=== PATIENT | male | born 1990 | race Two or more races ===

== ENCOUNTER 2024-07-01 08:35 | Emergency (ER) | payer MEDICAID, SELFPAY ==
[2024-07-01 08:54] VITALS: BMI 31.4
[2024-07-01 08:55] VITALS: BP 127/82; PULSE 62; RESP 19; TEMP 37.1; O2SAT 99
--- NOTE | 2024-07-01 09:33 | XR_ITS ---
Examination: CT abdomen with intravenous contrast CT pelvis with intravenous contrast 2-D coronal reconstructions 2-D sagittal reconstructions Date and time of exam:July 01, 2024 1134 hours INDICATIONS: Left lower abdominal pain beginning one hour ago COMPARISON: 03/24/2021. CTDI: vol (mGy) 11.3 DLP: (mGycm) 742 Technique: Multiple axial sections of the abdomen and pelvis have been obtained. 64 slice high-resolution scanner used. 3 mm axial sections have been obtained, post intravenous injection 60 cc [id number] 2-D sagittal, coronal reconstructions obtained. Low dose protocols were performed. One or more of the following dose reduction techniques were used; automated exposure control, adjustment of the mA and/or KV according to patient size, use of iterative reconstruction technique. Findings: No focal liver lesions 10 mm splenic lesion No biliary tract dilatation Cholelithiasis No pancreatic mass Minimal left hydronephrosis secondary to 2 mm distal left ureteral calculus Aorta normal size No bowel obstruction Normal appendix No diverticulitis Contracted urinary bladder IMPRESSION: 10 mm splenic lesion, recommend splenic sonography follow-up Minimal left hydronephrosis, 2 mm distal left ureteral calculus
--- NOTE | 2024-07-01 09:33 | EDRME_ITS ---
Rapid Medical Screening Exam RME Arrival date/time: 07/01/24 08:35 34-year-old male presents emergency department complaints of left lower abdominal pain. I have greeted and performed a focused initial assessment of this patient. Initial appropriate labs ordered at this time. A comprehensive ED assessment an d evaluation of the patient and analysis of all test and completion of medical decision making process will be conducted by additional ED provider. Chief Complaint: Abdominal Pain Time Seen by Provider: 07/01/24 08:59 Vital signs: Vital Signs Temperature 98.7 F 07/01/24 08:55 Pulse Rate 62 07/01/24 08:55 Respiratory Rate 19 07/01/24 08:55 Blood Pressure 127/82 07/01/24 08:55 Pulse Oximetry (%) 99 07/01/24 08:55 Oxygen Delivery Method Room Air 07/01/24 08:55
[2024-07-01 10:01] LABS: Basophils % (Auto) 0 % (0-2.5); Eosinophils # (Auto) 0.2 Thou/mm3 (0.0-0.5); Eosinophils % (Auto) 3 % (0-10); Hematocrit 48.3 % (41.0-53.0); Hemoglobin 16.4 g/dL (13.5-16.0); Immature Granulocytes % (Auto) 0 % (0-0); Immature Granulocytes Auto 0.01 Thou/mm3 (0.00-0.00); Lymphocytes # (Auto) 2.4 Thou/mm3 (1.0-4.8); Lymphocytes % (Auto) 37 % (10-50); Mean Corpuscular Hemoglobin 29.8 pg (25.0-35.0); Mean Corpuscular Volume 88 fL (80-100); Monocytes # (Auto) 0.4 Thou/mm3 (0.0-0.8); Monocytes % (Auto) 7 % (0-12); Neutrophils # (Auto) 3.4 Thou/mm3 (1.8-7.7); Neutrophils % (Auto) 53 % (37-80); Nucleated Red Blood Cell % 0 /100 WBC (0); Platelet Count 213 Thou/mm3 (140-440); White Blood Count 6.5 Thou/mm3 (3.8-10.6)
[2024-07-01 10:20] LABS: Alanine Aminotransferase 38 U/L (10-49); Albumin/Globulin Ratio 1.4 (1.2-2.2); Alkaline Phosphatase 78 U/L (46-116); Anion Gap 8 (7-16); Aspartate Amino Transferase 27 U/L (0-34); BUN/Creatinine Ratio 10 Ratio (12-20); Bilirubin,Total 0.9 mg/dL (0.3-1.2); Blood Urea Nitrogen 12 mg/dL (9-23); Calcium 10.2 mg/dL (8.3-10.6); Calcium (Corrected) 10.2 mg/dL (8.5-10.1); Carbon Dioxide 28.2 mMol/L (20.0-31.0); Chloride 102 mMol/L (98-107); Creatinine (Component) 1.2 mg/dL (0.6-1.3); Estimated Creatinine Clearance 109.7 mL/min (>60); Globulin 3.5 gm/dL (2.3-3.5); Glucose 120 mg/dL (74-106); Lipase 34 U/L (12-53); Osmolality,Calculated 276 (275-295); Potassium 4.1 mMol/L (3.4-5.1); Sodium 138 mMol/L (136-145); Total Protein 8.5 gm/dL (5.7-8.2); eGFR > 60 See Note
[2024-07-01 10:30] LABS: Collection Type, Urine Clean Catch
[2024-07-01 10:41] LABS: Amorphous Crystals,Urine Present (Absent); Bilirubin,Urine Negative (Negative); Blood,Urine 3+ (Negative); Color,Urine Yellow (Lt Yel-Yel); Glucose, Urine Negative (Negative); Hyaline Casts,Urine < 1 /hpf (0-1); Ketones,Urine Negative (Negative); Leukocyte Esterase,Urine Negative (Negative); Nitrite,Urine Negative (Negative); Protein,Urine 1+ (Neg - Trace); RBC,Urine 26 /hpf (0-3); Squamous Epithelial Cell,Urine 2 /hpf (0-5); Urobilinogen,Urine Negative mg/dL (0.0-1.0); WBC,Urine 2 /hpf (0-5)
[2024-07-01 11:12] LABS: Clarity,Urine Hazy (Clear/Hazy)
[2024-07-01] MEDS: ONDANSETRON INJ 2 MG/ML INJ 2 ML 4 MG IV (12:28)
[2024-07-01] MEDS: MORPHINE SULF INJ 10 MG/ML VIAL 5 MG IVP (12:30)
--- NOTE | 2024-07-01 14:07 | PD.EDABDPN ---
ED Abdominal Pain RME/HPI General Chief Complaint: Abdominal Pain Stated complaint: ABD PAIN FOR 1 HOUR Time seen by provider: 07/01/24 08:59 Arrival date/time: 07/01/24 08:35 RME / HPI RME / HPI narrative: 34-year-old male patient with no significant medical history, came in for evaluation regarding left lower abdominal pain, sudden onset about 1 hour prior to ER visit, described as sharp pain, severity 10 out of 10. Denies any hematuria dysuria vomiting fever or other complaints. Related Data Previous Rx's ?Medication ?Instructions ?Recorded ibuprofen 800 mg tablet 800 mg PO TID PRN pain #30 tabs 07/01/24 Allergies Allergy/AdvReac Type Severity Reaction Status Date / Time No Known Allergies Allergy Verified 07/01/24 08:37 Review of Systems Review of Systems Narrative Review of Systems: Review of system reviewed and within normal limits except mentioned in HPI ED Exam Narrative Physical exam: VITAL SIGNS: Reviewed. GENERAL APPEARANCE: Alert and interactive, follows commands, no acute distress, HEAD AND FACE: Non-traumatic. ENT: PERRL, pink conjunctivitis, eyelid no trauma, Mucous membrane moist. NECK: Supple, nontender, no nuchal rigidity. CHEST: No tenderness, no crepitus, no paradoxical movement, no retractions. LUNGS: Clear, well ventilated, symmetric, no rales, no wheezing, no ronchi, no stridor, good breath sounds bilaterally. HEART: Regular rate, regular rhythm, no murmur, no gallops. ABDOMEN: Soft, positive bowel sounds, nondistended, no guarding, left lower quadrant tenderness no rebound, no masses, RECTAL: Deferred. GENITAL: Deferred. NEUROLOGICAL: Gross motor function intact sensory function intact, Appropriate for age. MUSCULOSKELETAL: low back nontender, full range of motion. EXTREMITIES: Nontender, full range of motion. SKIN: Color pink, dry, no rash, no lacerations, no abrasions, no contusions. LYMPHATICS: Deferred. Course Quality Measures none Orders Category Date Time Status CT Screening NOW Care 07/01/24 09:[address] abdomen pelvis w con Stat Exams 07/01/24 09:33 Completed CBC Stat Lab 07/01/24 09:46 Completed Comprehensive Metabolic Panel Stat Lab 07/01/24 09:46 Completed Lipase Stat Lab 07/01/24 09:46 Completed Urinalysis Stat Lab 07/01/24 10:06 Completed Morphine Inj Med 07/01/24 12:01 Discontinued 5 mg IM X1 ONE Morphine Inj Med 07/01/24 12:27 Discontinued 5 mg IVP X1 ONE Ondansetron Inj [Zofran Inj] Med 07/01/24 12:01 Discontinued 4 mg IV X1 ONE Vital Signs Vital signs: Vital Signs Temperature 98.7 F 07/01/24 08:55 Pulse Rate 62 07/01/24 08:55 Respiratory Rate 19 07/01/24 08:55 Blood Pressure 127/82 07/01/24 08:55 Pulse Oximetry (%) 99 07/01/24 08:55 Oxygen Delivery Method Room Air 07/01/24 08:55 Abdominal Pain MDM MDM Narrative MDM Narrative:: 34-year-old male patient with no significant medical history, came in for evaluation regarding left lower abdominal pain, sudden onset about 1 hour prior to ER visit, described as sharp pain, severity 10 out of 10. Denies any hematuria dysuria vomiting fever or other complaints. Patient received morphine, Zofran, with complete resolution of symptoms. CT scan of the abdomen and pelvis showed 2 mm distal ureteral stone on the left, and incidental finding of splenic lesion. Results discussed with the patient and advised him to closely follow-up with PCP regarding splenic lesions. Currently patient is not having any pain. Patient's workup all came back normal. No UTI. Patient data External records reviewed:: None Clinical information provided by:: patient Social determinants that could affect healthcare access:: none Patient has the following chronic illnesses:: None How is presenting disease/condition affected by chronic disease/condition?: no chronic disease Evaluation data The following diagnostics were reviewed and interpreted by me:: lab results Lab and/or radiology exams considered but not ordered:: None Interpretation Summary: Laboratory workup significant for hematuria with no UTI. CT scan of the abdomen and pelvis showed 2 mm distal ureteral stone on the left and a splenic lesion. Medications / Prescriptions Medications or Prescriptions considered but not ordered:: none Medication administrations:: Medication Administration History Discontinued Medications Morphine Sulfate (Morphine Sulf Inj 10 Mg/Ml Vial) 5 mg IM X1 ONE Stop: 07/01/24 12:02 Last Admin: 07/01/24 12:28 Dose: Not Given Documented By: AMBROSE Non-Admin Reason: Discontinued Morphine Sulfate (Morphine Sulf Inj 10 Mg/Ml Vial) 5 mg IVP X1 ONE Stop: 12/20/24 12:28 Last Admin: 07/01/24 12:30 Dose: 5 mg Documented By: AMBROSE Ondansetron HCl (Ondansetron Inj 2 Mg/Ml Inj 2 Ml) 4 mg IV X1 ONE; Protocol Stop: 07/01/24 12:02 Last Admin: 07/01/24 12:28 Dose: 4 mg Documented By: AMBROSE Morphine Zofran Consultations Consultation(s) initiated? (list below): No Diagnosis Differential diagnosis abdominal pain: abdominal pain, calculus of kidney and pancreatitis Most likely diagnosis given after review of the tests above:: Renal colic, ureterolithiasis, splenic lesions Admission Indicated Admission indicated?: not indicated Explain why admission is indicated or not indicated:: Stable Admission Request Was there a request for admission?: No Disposition Plan Disposition Plan: Discharge Discharge Attestation Discharge Attestation: The patient was given an opportunity to ask questions and understood the discharge instructions. Discharge instructions specifically effects, indications for sooner follow up or return to the emergency department, and the expected course of current diagnosis. Patient condition: Stable Discharge Plan Plan Patient Disposition: HOME (Self Care) Disposition Comment: stable Prescriptions/Referrals Prescriptions/Med Rec: New ibuprofen 800 mg tablet 800 mg PO TID PRN (Reason: pain) Qty: 30 0RF Referrals: Nupur Mane PA-C [Primary Care Provider] - In 1 week Problem List Clinical Impression: Ureterolithiasis, Lesion of spleen Patient/Caregiver Discharge Instructions Discharge Activity: activity as tolerated Education Materials: ED Kidney Stone w/ Colic Additional Instructions: Thank you for the opportunity for serving you today. You are stable for discharged . You are advised to: Follow-up with your PCP in 1 to 2 days and as per referral to urologist. As your PCP to monitor your splenic lesion also. Return to ED for worsening of symptoms Increase oral fluids Take medication as prescribed Print Language: [place] Stand Alone Forms: Tiffany Award Info., Patient Portal Info Letter SHAILA/ZAC Supervising Physician MARYA Supervising Physician: MD Paulette
== END 2024-07-01 14:58 | disposition home or self-care (01) ==
PROVIDERS: Nurse Practitioner Primary Care; Emergency Provider Emergency Medicine; PCP Physician Assistant
DX: N20.1 Calculus of ureter (principal); D73.89 Other diseases of spleen
CPT/HCPCS: 36415; 74177; 80053; 81001; 83690; 85025; 96374; 96375; 99285; A4649; J2270; J2405; Q9967

== ENCOUNTER 2024-07-04 04:24 | Emergency (ER) | payer MEDICAID, SELFPAY ==
[2024-07-04 04:25] VITALS: BMI 31.3
[2024-07-04 04:36] VITALS: BP 143/88; PULSE 60; RESP 17; TEMP 36.8; O2SAT 99
--- NOTE | 2024-07-04 04:47 | XR_ITS ---
Examination: Ultrasound spleen, complete Exam date and time: July 04, 2024 0512 hrs. Indications: 10 [address] lesion on CT abdomen July 01, 2024, left flank pain beginning 4 hours ago Technique And Findings: Multiple grayscale sonographic images spleen Sagittal dimension spleen 9.2 cm No splenic lesion noted Impression: No splenic lesion noted
--- NOTE | 2024-07-04 04:47 | PD.EDRME ---
Rapid Medical Screening Exam RME Arrival date/time: 07/04/24 04:24 34-year-old male past medical history of kidney stones presents emergency department complaining of left flank pain that is been ongoing for several days. Patient reports was seen recently in the emergency department and told to get ultrasound of his spleen. Chief Complaint: Abdominal Pain Vital signs: Vital Signs Temperature 98.2 F 07/04/24 04:36 Pulse Rate 60 07/04/24 04:36 Respiratory Rate 17 07/04/24 04:36 Blood Pressure 143/88 H 07/04/24 04:36 Pulse Oximetry (%) 99 07/04/24 04:36 Oxygen Delivery Method Room Air 07/04/24 04:36 Vital signs reviewed by provider: Yes
[2024-07-04] MEDS: KETOROLAC INJ 60 MG/2 ML VIAL 30 MG IM (04:58)
[2024-07-04 05:08] LABS: Collection Type, Urine Clean Catch; WBC,Urine 0 /hpf (0-5)
[2024-07-04 05:16] LABS: Bilirubin,Urine Negative (Negative); Blood,Urine 3+ (Negative); Clarity,Urine Clear (Clear/Hazy); Color,Urine Yellow (Lt Yel-Yel); Culture Indicated,Urine Not Indicated; Glucose, Urine Negative (Negative); Ketones,Urine Negative (Negative); Leukocyte Esterase,Urine Negative (Negative); Nitrite,Urine Negative (Negative); PH,Urine 5.5 (5.0-7.0); Protein,Urine Trace (Neg - Trace); RBC,Urine 118 /hpf (0-3); Specific Gravity,Urine 1.024 (1.001-1.035); Squamous Epithelial Cell,Urine 1 /hpf (0-5); Urobilinogen,Urine Negative mg/dL (0.0-1.0)
[2024-07-04 05:58] LABS: Basophils % (Auto) 0 % (0-2.5); Eosinophils # (Auto) 0.2 Thou/mm3 (0.0-0.5); Eosinophils % (Auto) 2 % (0-10); Hematocrit 47.4 % (41.0-53.0); Hemoglobin 16.2 g/dL (13.5-16.0); Immature Granulocytes % (Auto) 0 % (0-0); Immature Granulocytes Auto 0.01 Thou/mm3 (0.00-0.00); Lymphocytes # (Auto) 3.6 Thou/mm3 (1.0-4.8); Lymphocytes % (Auto) 47 % (10-50); Mean Corpuscular HGB Conc 34.2 g/dl (31.0-37.0); Mean Corpuscular Hemoglobin 30.2 pg (25.0-35.0); Mean Corpuscular Volume 88 fL (80-100); Monocytes # (Auto) 0.6 Thou/mm3 (0.0-0.8); Monocytes % (Auto) 8 % (0-12); Neutrophils # (Auto) 3.2 Thou/mm3 (1.8-7.7); Neutrophils % (Auto) 42 % (37-80); Nucleated Red Blood Cell % 0 /100 WBC (0); Platelet Count 227 Thou/mm3 (140-440); Red Blood Count 5.37 Miln/mm3 (4.50-5.90); White Blood Count 7.6 Thou/mm3 (3.8-10.6)
[2024-07-04 06:18] LABS: Alanine Aminotransferase 44 U/L (10-49); Albumin, Serum 4.8 gm/dL (3.5-5.0); Albumin/Globulin Ratio 1.4 (1.2-2.2); Alkaline Phosphatase 71 U/L (46-116); Anion Gap 7 (7-16); Aspartate Amino Transferase 15 U/L (0-34); BUN/Creatinine Ratio 10 Ratio (12-20); Bilirubin,Total 0.8 mg/dL (0.3-1.2); Blood Urea Nitrogen 11 mg/dL (9-23); Calcium 10.2 mg/dL (8.3-10.6); Calcium (Corrected) 10.2 mg/dL (8.5-10.1); Carbon Dioxide 30.6 mMol/L (20.0-31.0); Chloride 102 mMol/L (98-107); Creatinine (Component) 1.1 mg/dL (0.6-1.3); Estimated Creatinine Clearance 119.5 mL/min (>60); Globulin 3.4 gm/dL (2.3-3.5); Glucose 105 mg/dL (74-106); Lipase 36 U/L (12-53); Osmolality,Calculated 278 (275-295); Potassium 3.8 mMol/L (3.4-5.1); Sodium 140 mMol/L (136-145); Total Protein 8.2 gm/dL (5.7-8.2); eGFR > 60 See Note
--- NOTE | 2024-07-04 06:20 | PD.EDABDPN ---
ED Abdominal Pain RME/HPI General Chief Complaint: Abdominal Pain Stated complaint: SHARP PAIN LEFT SIDE BACK Time seen by provider: 07/04/24 04:48 Arrival date/time: 07/04/24 04:24 RME / HPI RME / HPI narrative: 07/04/24 04:24 34-year-old male past medical history of kidney stones presents emergency department complaining of left flank pain that is been ongoing for several days. Patient reports was seen recently in the emergency department and told to get ultrasound of his spleen. DR. GALINDO CROSS ED EVALUATION 34 year old male with history of known left distal ureteral stone from CT scan in 2020 with on/off left flank pain x 2020, presents to the ED complaining of left flank pain. Patient reports he was here a few days ago and had a CT scan performed showing the same stone plus incidental findings of splenic lesion. States he was advised to return for an ultrasound of his splenic lesion. No other associated symptoms reported. Denies fevers, chills, chest pain, cough, shortness of breath, n/v/d, or urinary symptoms. Related Data Previous Rx's ?Medication ?Instructions ?Recorded ibuprofen 800 mg tablet 800 mg PO TID PRN pain #30 tabs 07/01/24 Allergies Allergy/AdvReac Type Severity Reaction Status Date / Time No Known Allergies Allergy Verified 07/04/24 05:57 Review of Systems Review of Systems Narrative Review of Systems: GEN: No fever, no chills, no weight loss EYES: No discharge, no visual changes, no pain HEENT: No ear pain, no congestion, no sore throat PULM: No shortness of breath, no cough, no congestion CV: No chest pain, no dyspnea on exertion, no palpitations GI: No nausea, no vomiting, no diarrhea, +pain, no constipation : No frequency, no urgency and no dysuria MUSC/SKEL No joint pain, no back pain SKIN: No rash NEURO: No weakness, no headache Past Medical History Past Medical History NEUROLOGIC: Negative Neurological Disorders GASTROINTESTINAL: Negative Gastrointestinal Disorders GENITOURINARY: Positive Kidney Stones; Negative Genitourinary Disorders or Renal Disease MUSCULOSKELETAL: Negative Musculoskeletal Disorders Social History SMOKING STATUS: Never smoker SUBSTANCE USE: does not use ED Exam Narrative Physical exam: GENERAL APPEARANCE: Well hydrated, well nourished, in no acute distress. VITALS: All vitals were reviewed and the pulse ox is 99% on room air which is normal according to my interpretation. HEENT: Normocephalic, atramatic, EOMI, EACs are patent. There is no bulge or retraction. Throat without erythema or exudate. Moist oromucosa. No jaundice NECK: Supple, no JVD or bruits. CARDIOVASCULAR: Heart regular without S3-S4 or murmur. No rubs or gallops. LUNGS/CHEST: Clear to auscultation bilaterally. No rales, rhonchi, or wheezing. Normal inspection. ABDOMEN: Soft, minimal left lower quadrant discomfort, with normal bowel sounds. No pulsatile masses. No rebound, rigidity, or guarding. No incarcerated hernia. EXTREMITIES: Normal inspection and palpation. No edema, clubbing, or cyanosis. Intact CSM SKIN: Warm and dry without rashes. Normal inspection. MUSCULOSKELETAL: Normal inspection. No gross deformity, full ROM all extremities NEURO: Alert and oriented x3. Cranial nerves II through XII grossly intact. There are no other motor or sensory deficits noted. PSYCHIATRIC: Normal mood and affect. No psychosis. Course Quality Measures none Orders Category Date Time Status US spleen Stat Exams 07/04/24 04:47 Taken CBC Stat Lab 07/04/24 04:53 Completed CMP [Comprehensive Metabolic Panel] Stat Lab 07/04/24 04:53 Completed Lipase Stat Lab 07/04/24 04:53 Completed Urinalysis, C/S if Indicated Stat Lab 07/04/24 05:00 Completed Ketorolac Inj [Toradol Inj] Med 07/04/24 04:47 Discontinued 30 mg IM X1 ONE Vital Signs Vital signs: Vital Signs Temperature 98.2 F 07/04/24 04:36 Pulse Rate 60 07/04/24 04:36 Respiratory Rate 17 07/04/24 04:36 Blood Pressure 143/88 H 07/04/24 04:36 Pulse Oximetry (%) 99 07/04/24 04:36 Oxygen Delivery Method Room Air 07/04/24 04:36 Abdominal Pain MDM MDM Narrative MDM Narrative:: IRuchi am scribing for and in the presence of Dr. Caldwell. CBC unremarkable. CMP and lipase are negative. UA still shows trace of red blood cell. Ultrasound spleen was done and was interpreted by Dr. Piper, teleneuro showing the spleen is normal in size measuring 9.2 cm and in echotexture. There is noes perisplenic or parenchymal collection demonstrated. No discrete lesion or mass demonstrated. Impression. No obvious splenic abnormality on the submitted images. I had a chance to show the patient images of the CAT scan that was done on 06/21/2024 in comparison to the CAT scan images that was done on March 2021. They look almost identical including the distal left ureterovesicular stone and hazy lesion on the spleen. I told the patient to get another CAT scan done in about couple months to follow-up on the splenic lesion. However at this point in time I think that there is a benign lesion He should follow-up with his medical doctor for further care and workup as deemed appropriate. Patient has no surgical abdomen at this time and he can be discharged home Patient data External records reviewed:: [facility] previous records (I reviewed ED visit on 07/01/2024) Clinical information provided by:: patient Social determinants that could affect healthcare access:: none Patient has the following chronic illnesses:: Known left ureteral stone x 2020 How is presenting disease/condition affected by chronic disease/condition?: exacerbated by Evaluation data The following diagnostics were reviewed and interpreted by me:: lab results and radiology exam(s) Lab and/or radiology exams considered but not ordered:: None Interpretation Summary: As noted above Medications / Prescriptions Medications or Prescriptions considered but not ordered:: None Medication administrations:: Medication Administration History Discontinued Medications Ketorolac Tromethamine (Ketorolac Inj 60 Mg/2 Ml Vial) 30 mg IM X1 ONE Stop: 07/04/24 04:48 Last Admin: 07/04/24 04:58 Dose: 30 mg Documented By: FLAKO See above Consultations Consultation(s) initiated? (list below): No Diagnosis Differential diagnosis abdominal pain: abdominal pain, calculus of kidney and other (splenic lesion) Most likely diagnosis given after review of the tests above:: Splenic lesion, chronic Chronic left distal ureteral stone Admission Indicated Admission indicated?: not indicated Admission Request Was there a request for admission?: No Disposition Plan Disposition Plan: Discharge Discharge Attestation Discharge Attestation: The patient and all family members were given an opportunity to ask questions and understood the discharge instructions. Discharge instructions specifically effects, indications for sooner follow up or return to the emergency department, and the expected course of current diagnosis. Patient condition: Stable Discharge Plan Plan Patient Disposition: HOME (Self Care) Disposition Comment: Stable for DC Prescriptions/Referrals Prescriptions/Med Rec: No Action ibuprofen 800 mg tablet 800 mg PO TID PRN (Reason: pain) Qty: 30 0RF Problem List Clinical Impression: Lesion of spleen, Ureteral calculus Patient/Caregiver Discharge Instructions Education Materials: Understanding Kidney Stones Additional Instructions: CT images that was done on 06/21/2024 and March 2021 as being shown to you, you have a stone in the left distal ureter measuring about 2 mm and a small splenic lesion. Please follow-up with your medical doctor for recheck and further care and repeat a CAT scan in about couple months. Return to emergency department if condition worsens or if new symptoms develop. You can take Tylenol and or ibuprofen for pain. You should ask the doctor to refer you to see a urologist. We do not have urologist on-call for ER. Print Language: Dive[place] Stand Alone Forms: Tiffany Award Info., Patient Portal Info Letter
[2024-07-04 06:32] VITALS: BP 119/79; PULSE 57; RESP 16; O2SAT 99
--- NOTE | 2024-07-04 07:10 | PD.EDADDENDU ---
Emergency Room Addendum Addendum Narrative: Upon discharge, I also gave the patient copy of the CT reports from 06/21/2024 and March 2021 and ultrasound report from today. So that he can bring those to his medical doctor for follow-up care
[2024-07-04 07:24] VITALS: BP 120/72; PULSE 64; RESP 14; O2SAT 99
== END 2024-07-04 07:24 | disposition home or self-care (01) ==
LOC: SERX 07:44
PROVIDERS: Emergency Provider Emergency Medicine
DX: N20.2 Calculus of kidney with calculus of ureter (principal); D73.89 Other diseases of spleen
CPT/HCPCS: 36415; 76705; 80053; 81001; 83690; 85025; 96372; 99284; J1885